=== PATIENT | male | born 1985 | race Two or more races ===

== ENCOUNTER 2017-04-10 22:02 | Emergency (ER) | payer SELFPAY ==
[~2017-04-10] VITALS: Ht 175.3 cm; Wt 537.5 kg
--- NOTE | 2017-04-10 22:06 | NUR ---
to bed 1 bib paramedics, pt states "I took jorge and now i feel anxious". pt aaox4 no acute distress noted, resp even and unlabored. pt very disphoretic, appears anxious. place pt on cardiac monitoring, continuous pox, noted Hr-140's. er md at bedside to eval pt with orders received. call light within reach.
--- NOTE | 2017-04-10 22:15 | NUR ---
started sl 18g to RAC 18g.
[2017-04-10] MEDS ORDERED: LORAZEPAM INJ 2 MG/ML VIAL IV ONE (22:30)
[2017-04-10] MEDS ORDERED: LORAZEPAM INJ 2 MG/ML VIAL ONE (22:32)
[2017-04-10] MEDS: IV NS 0.9% 1,000 ML BAG IV ONE ×2 (22:36→22:37)
--- NOTE | 2017-04-10 23:03 | NUR ---
jordan forbes at bedside to re-eval pt.
[2017-04-11] MEDS ORDERED: IV NS 0.9% 1,000 ML BAG IV ONE
--- NOTE | 2017-04-11 00:49 | NUR ---
IV removed. Catheter intact and site benign. Pressure and 4x4 applied to site. No bleeding noted. Patient discharged to home in stable condition. Written and verbal after care instructions given. Patient verbalizes understanding of instruction. ambulatory with a steady gait noted. pt aaox4 no acute distress noted, resp even and unlabored. advice pt not to drive or operate any machinery due to pt was given narcotic medicine. pt verbalize understanding. pt s/o at bedside to take pt home.
[2017-04-11 00:50] VITALS: BP 140/64
== END 2017-04-11 00:51 | disposition home or self-care (01) ==
LOC: ER 22:04
DX: F19.10 Other psychoactive substance abuse, uncomplicated (principal); E86.0 Dehydration
CPT/HCPCS: A4606; J2060; J7030; Z7610